=== PATIENT | male | born 1930 | race Hispanic/Latino ===

== ENCOUNTER 2019-01-13 12:27 | Outpatient (CLI) | payer MEDICARE ==
--- NOTE | 2019-01-13 13:43 | XRay Report ---
ROUTINE CHEST, TWO VIEWS: HISTORY: pneumonia unspecified organism. Compared to 11/21/15. The trachea, heart, mediastinal contour, lung sanford and bony thorax are unremarkable. Mild emphysematous changes are suspected. IMPRESSION: Unremarkable chest x-ray. No evidence for pneumonia.
== END 2019-01-13 12:28 | disposition home or self-care (01) ==
LOC: XRAY 12:27
PROVIDERS: ATTEND Internal Medicine
DX: J18.9 Pneumonia, unspecified organism (principal); Z90.49 Acquired absence of other specified parts of digestive tract
CPT/HCPCS: 71046

== ENCOUNTER 2019-02-09 08:30 | Outpatient (CLI) | payer MEDICARE ==
[2019-02-09 10:31] LABS: Hematocrit 44.6 % (35.5-45.6); Hemoglobin 15.1 gm/dl (11.8-15.2); Mean Corpuscular HGB Conc 34 % (32-34); Mean Corpuscular Volume 92 fl (84-94); Platelet Count 235 K/mm3 (140-440); Red Blood Count 4.85 M/mm3 (3.65-5.03); Red Cell Distribution Width 13.9 % (13.2-15.2)
== END 2019-02-09 08:31 | disposition home or self-care (01) ==
LOC: LAB 08:30
PROVIDERS: ATTEND Internal Medicine
DX: I11.0 Hypertensive heart disease with heart failure (principal); I50.9 Heart failure, unspecified; E78.00 Pure hypercholesterolemia, unspecified; I48.91 Unspecified atrial fibrillation; I16.9 Hypertensive crisis, unspecified; Z90.49 Acquired absence of other specified parts of digestive tract
CPT/HCPCS: 36415; 82306; 82607; 85027

== ENCOUNTER 2019-12-18 13:02 | Emergency (ER) | payer MEDICARE ==
[2019-12-18] MEDS ORDERED: HYDROcodone/ACETAMINOPHEN 5-325 MG TAB PO ONE (13:15)
--- NOTE | 2019-12-18 13:19 | Emergency Department Report ---
Chief Complaint: Fall Stated Complaint: FALL Time Seen by Provider: 12/18/19 13:19 - HPI History of Present Illness: Triage The pt is an 89 y/o M p/w pain after fall. The pt states he tripped and fell 2 days ago and landed on his back. Pt denies LOC. Pt c/o pain in his right hip, back and injury to the head - Exam Vital Signs: 119/44, P 63, R 20 SPO2 98% MSE screening note: Focused history and physical exam performed. Due to findings the following was ordered: ct head, ct c-spine, right hip xr, L spine xr ED Disposition for MSE Condition: Stable
--- NOTE | 2019-12-18 14:17 | XRay Report ---
RIGHT HIP 3 VIEW(S) INDICATION / CLINICAL INFORMATION: pain after fall COMPARISON: CT dated 06/01/15 FINDINGS: BONES / JOINT(S): No acute fracture or subluxation. 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 Patient is subjectively osteopenic. SOFT TISSUES: No significant abnormality. ADDITIONAL FINDINGS: None. Signer Name: Alcon Melvin MD Signed: 12/18/2019 2:13 PM Workstation Name: [id number]
--- NOTE | 2019-12-18 14:27 | Cat Scan Report ---
CT head/brain wo con INDICATION: Head injury after fall. TECHNIQUE: Routine CT head without contrast. All CT scans at this location are performed using CT dose reduction for ALARA by means of automated exposure control. COMPARISON: None. FINDINGS: BRAIN / INTRACRANIAL CONTENTS: No acute hemorrhage, brain edema, mass effect, or hydrocephalus. Noreen l nassar-white differentiation. No chronic infarct. Age-commensurate ventricular and cisternal/sulcal p rominence. CALVARIUM/SKULL BASE/CRANIOCERVICAL JUNCTION: No evidence of fracture. ORBITS: No significant abnormality of visualized orbits. SINUSES / MASTOIDS: No significant abnormality of visualized sinuses and mastoid air cells. ADDITIONAL FINDINGS: None. IMPRESSION: 1. No acute post-traumatic intracranial abnormality. Signer Name: Pardeep Coker MD Signed: 12/18/2019 2:22 PM Workstation Name: [id number]
--- NOTE | 2019-12-18 14:28 | XRay Report ---
LUMBAR SPINE 3 VIEWS INDICATION / CLINICAL INFORMATION: pain after fall. COMPARISON: CT dated 06/01/15. FINDINGS: VERTEBRAE: No acute fracture. Chronic appearing compression deformity at T12 with about 25% height lo ss, new since 2014. DISC SPACES / FACET JOINTS:Mild multilevel discogenic and facet spondylosis. PARASPINAL SOFT TISSUES:No significant abnormality. ADDITIONAL FINDINGS: None. IMPRESSION: 1. Age-indeterminate compression deformity at T12 potentially chronic but new since 2014. Signer Name: Alcon Melvin MD Signed: 12/18/2019 2:23 PM Workstation Name: [id number]
[2019-12-18] MEDS ORDERED: ACETAMINOPHEN 325 MG TAB PO ONE (14:29)
--- NOTE | 2019-12-18 14:30 | Emergency Department Report ---
ED General Adult HPI - General Chief complaint: Fall Stated complaint: FALL Time Seen by Provider: 12/18/19 13:19 Source: patient, family, RN notes reviewed, old records reviewed Mode of arrival: Wheelchair Limitations: Physical Limitation - History of Present Illness Initial comments: Primary care doctor: Jaycee Miller Cardiology: Ronit Snyder Patient is a pleasant 89-year-old gentleman. He has a history of cardiomyopathy and is on systemic anticoagulation, Eliquis, high cholesterol The patient presents to the ER with a complaint of fall sustained on Thursday. Today is Thursday. Fall was at [employer] and was mechanical. Patient was stepping up a stair, misstepped, and then fell, landing on his lower back, and right hip. He does not believe he hit his head or his neck. He denies extremity weakness and or numbness. He makes no complaints of bladder or bowel retention and incontinence. His main complaint is right-sided hip pain, bilateral paralumbar pain, and pain and difficulty with walking and ambulation. He is able to get up at home, but is much more difficult for him to get up and ambulate than usual. He reports that he is able to get himself out of bed with some assistance, and walk to the bathroom. He took a Tylenol at home for pain, but has not taken anything stronger. He came to the ER today to get checked out at the behest of his significant other. Pain is throbbing and aching, increases with palpation and decreases with rest. He also endorses abrasion to the dorsal aspect of his phallus. He believes his primary care doctor has him up-to-date on tetanus vaccination. He also endorses some discomfort with breathing. However, he does not have chest pain or shortness of breath, he believes that he "bruised a rib" When he fell. -: Sudden Location: back, right, lower extremity Quality: aching Consistency: intermittent Improves with: rest Worsens with: movement - Related Data Home Medications Medication Instructions Recorded Confirmed Last Taken Digoxin [Lanoxin] 0.125 mg PO DAILY 01/14/14 12/18/19 12/18/19 FLUoxetine [PROzac] 20 mg PO DAILY 01/14/14 12/18/19 12/18/19 Apixaban [Eliquis] 5 mg PO 12/18/19 12/18/19 AtorvaSTATin [Lipitor] 20 mg PO QHS 12/18/19 12/18/19 12/17/19 Metoprolol [Lopressor] 25 mg PO BID 12/18/19 12/18/19 12/18/19 diazePAM TAB [Valium] 5 mg PO PRN PRN 12/18/19 12/18/19 Unknown Allergies Allergy/AdvReac Type Severity Reaction Status Date / Time No Known Allergies Allergy Verified 11/21/15 07:54 ED Review of Systems ROS: Stated complaint: FALL Other details as noted in HPI Constitutional: denies: fever Eyes: denies: eye discharge ENT: denies: congestion Respiratory: denies: cough, wheezing Cardiovascular: denies: chest pain, syncope Gastrointestinal: denies: abdominal pain Genitourinary: other (See history of present illness). denies: dysuria Musculoskeletal: back pain, arthralgia, myalgia Skin: other (Abrasion to dorsal aspect of phallus) Neurological: weakness, other (Global weakness, but no focal extremity weak). denies: numbness, paresthesias Hematological/Lymphatic: denies: easy bleeding ED Past Medical Hx - Past Medical History Previous Medical History?: Yes Hx Congestive Heart Failure: Yes Additional medical history: enlarged heart; high cholesterol - Surgical History Past Surgical History?: Yes Hx Cholecystectomy: Yes Additional Surgical History: back; hernia repair - Social History Smoking Status: Current Every Day Smoker Substance Use Type: Alcohol - Medications Home Medications: Home Medications Medication Instructions Recorded Confirmed Last Taken Type Digoxin [Lanoxin] 0.125 mg PO DAILY 01/14/14 12/18/19 12/18/19 History FLUoxetine [PROzac] 20 mg PO DAILY 01/14/14 12/18/19 12/18/19 History Apixaban [Eliquis] 5 mg PO 12/18/19 12/18/19 History AtorvaSTATin [Lipitor] 20 mg PO QHS 12/18/19 12/18/19 12/17/19 History Metoprolol [Lopressor] 25 mg PO BID 12/18/19 12/18/19 12/18/19 History diazePAM TAB [Valium] 5 mg PO PRN PRN 12/18/19 12/18/19 Unknown History ED Physical Exam - General Limitations: Physical Limitation, Other (Patient is able to get up and walk with a 1 person assist) General appearance: alert, in no apparent distress - Head Head exam: Present: atraumatic, normocephalic - Eye Eye exam: Present: normal appearance, EOMI, other (Visual acuity intact to finger counting and color perception at a close distance). Absent: nystagmus - ENT ENT exam: Present: normal exam, normal orophraynx, mucous membranes moist, normal external ear exam - Neck Neck exam: Present: normal inspection, full ROM. Absent: tenderness, meningismus - Respiratory Respiratory exam: Present: normal lung sounds bilaterally. Absent: respiratory distress - Cardiovascular Cardiovascular Exam: Present: regular rate, irregular rhythm, normal heart sounds. Absent: tachycardia, systolic murmur, diastolic murmur, rubs, gallop - GI/Abdominal GI/Abdominal exam: Present: soft, normal bowel sounds. Absent: distended, tenderness, guarding, rebound, rigid, pulsatile mass - Rectal Rectal exam: Present: deferred - Extremities Exam Extremities exam: Present: normal inspection (2+ pulses noted in the bilateral upper and lower extremities. There is no palpable cord. negative Homans sign. Muscular compartments are soft. The pelvis is stable.), full ROM, pedal edema, other (There is right sided hip tenderness. There is right-sided hip pain with passive range of motion internal and external rotation.). Absent: calf tenderness - Back Exam Back exam: Present: normal inspection, paraspinal tenderness. Absent: tenderness, CVA tenderness (R), CVA tenderness (L) - Neurological Exam Neurological exam: Present: alert, oriented X3, normal gait (Walks with a 1 person assist), other (There is no facial droop. The tongue is midline. Extraocular movements are intact bilaterally. There is 5 out of 5 strength in bilateral upper and lower extremities. Sensation is intact to light touch bilateral upper and lower extremities. There is a normal gait.) - Psychiatric Psychiatric exam: Present: normal affect, normal mood - Skin Skin exam: Present: warm, dry, intact, normal color. Absent: rash ED Course Vital Signs 12/18/19 12/18/19 13:10 14:30 Temperature 98.6 F Pulse Rate 63 72 Respiratory 20 16 Rate Blood Pressure 119/44 148/89 [Left] O2 Sat by Pulse 98 99 Oximetry - Reevaluation(s) Reevaluation #1: 12/18/19 15:03 Differential diagnosis, including but not limited to: Intracranial injury, cervical spine injury, lumbar spine injury, retroperitoneal hematoma, musculoskeletal pain, deconditioning, fracture, myositis Assessment and plan: Elderly 89-year-old gentleman, with multiple medical comorbidities, status post mechanical fall 2 days ago, likely experiencing natural expected history of mechanical fall. He is afebrile with reassuring vital signs with an unremarkable neurologic examination. Given the extremes of age, medical comorbidities, presence of systemic anticoagulation, CT scan of the brain, cervical spine ordered prior to my personal evaluation, and are negative for traumatic disease. CT scan abdomen pelvis is ordered to assess for retroperitoneal hematoma, better assessed lumbar spine anatomy, and assess pelvic bony anatomy. He is treated with acetaminophen. Screening laboratory studies ordered to evaluate for possible myositis. However, he does appear well overall, not ill, and is able to walk with a 1 person assist, with no focal motor or neurologic deficits. He is most likely experiencing the natural expected history of mechanical fall and advanced age. If objective imaging and laboratory studies are unremarkable, we will order case management/physical therapy evaluation, to be performed tomorrow. Reevaluation #2: 12/18/19 15:58 Objective imaging studies essentially negative for significant disease, right- sided gluteal hematoma is appreciated. Patient feels improved after initial interventions. Went back to patient, and discussed the significance of laboratory studies and imaging studies with patient and his . He is going to follow-up with his outpatient primary care doctor. He has a cane at home. His has endorsed that they have a local grandson who can help out with the patient at home, as well as numerous members of the [employer]. Reevaluation #3: 12/18/19 16:00 Patient is approximately 48 hours out from initial injury, therefore, delayed intracranial hemorrhage is unlikely. ED Medical Decision Making - Lab Data Result diagrams: 12/18/19 15:12 12/18/19 15:12 Vital Signs 12/18/19 12/18/19 13:10 14:30 Temperature 98.6 F Pulse Rate 63 72 Respiratory 20 16 Rate Blood Pressure 119/44 148/89 [Left] O2 Sat by Pulse 98 99 Oximetry - Radiology Data Radiology results: report reviewed, image reviewed Noncontrast CT scan of the brain and cervical spine negative for acute disease. X-ray of the chest: no acute disease X-ray of the lumbar spine, no fracture or dislocation, T-spine compression deformity of indeterminate age Noncontrast CT scan of the abdomen pelvis Print Report Referring Physician: ALLAN KEARNS Patient Name: KO SALGUERO Date of : 1930 Sex: Male Report Date: 2019-12-18 Report Status: Finalized Findings [facility] [address] [place] [address] Cat Scan Report Signed Patient: KO SALGUERO MR#: [id number] : 1930 Acct:[id number] Age/Sex: 89 / M ADM Date: 12/18/19 Loc: ED Attending Dr: Ordering Physician: ALLAN KEARNS MD Date of Service: 12/18/19 Procedure(s): CT abdomen pelvis wo con Accession Number(s): [id number] cc: ALLAN KEARNS MD CT ABDOMEN AND PELVIS WITHOUT CONTRAST INDICATION / CLINICAL INFORMATION: fall back pain, on eliquis, assess for retroperitoneal hemorrhage pelvic. TECHNIQUE: Axial CT images were obtained through the abdomen and pelvis without IV contrast. All CT scans at this location are performed using CT dose reduction for ALARA by means of automated exposure control. COMPARISON: CT dated 06/01/15 FINDINGS: LOWER CHEST: No significant abnormality. LIVER: No significant abnormality. GALLBLADDER: Absent. BILE DUCTS: No significant abnormality. PANCREAS: No significant abnormality. SPLEEN: No significant abnormality. ADRENALS: No significant abnormality. RIGHT KIDNEY and URETER: Horseshoe kidney. No hydronephrosis. LEFT KIDNEY and URETER: Horseshoe kidney. Left renal cyst. No hydronephrosis. STOMACH and SMALL BOWEL: Stomach shows no acute abnormality. 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 No obstruction. Small bowel shows no acute abnormality. COLON: Mild colonic diverticulosis without inflammation. APPENDIX: No significant abnormality. PERITONEUM: No free fluid. No free air. No intra-abdominal or retroperitoneal hematoma. LYMPH NODES: No significant adenopathy. AORTA and ARTERIES: Mild atherosclerotic calcification without acute abnormality. IVC and VEINS: No significant abnormality. URINARY BLADDER: No significant abnormality. REPRODUCTIVE ORGANS: No significant abnormality. ADDITIONAL FINDINGS: Soft tissue hematoma in the right buttock posterior to the right hip in the gluteus allan muscle measuring 5.3 x 5.5 x 5.5 cm. SKELETAL SYSTEM: Mild anterior wedging of T12 appears chronic. IMPRESSION: 1. Right buttock soft tissue hematoma in the gluteus allan muscle. 2. No intra-abdominal or retroperitoneal hematoma. Signer Name: Alcon Melvin MD Signed: 12/18/2019 3:26 PM Workstation Name: [email or web address] Transcribed By: DT Dictated By: Tariq Melvin MD Electronically Authenticated By: Tariq Melvin MD Signed Date/Time: 12/18/19 152 DD/ 1521 Critical care attestation.: If time is entered above; I have spent that time in minutes in the direct care of this critically ill patient, excluding procedure time. ED Disposition Clinical Impression: Back pain due to injury, Anticoagulant long-term use Fall Qualifiers: Encounter type: initial encounter Qualified Code(s): W19.XXXA - Unspecified fall, initial encounter Disposition: - TO HOME OR SELFCARE Is pt being admited?: No Does the pt Need Aspirin: No Condition: Stable Additional Instructions: Please make certain to use cane or walker at home. Rest, avoid heavy lifting, and avoid strenuous physical activities. Patient may take [id number] Tylenol as needed for pain. Avoid consumption of Motrin, ibuprofen, Naprosyn, Aleve. Patient may alternate heat packs and ice packs as needed for pain. Patient may use complementary therapy, such as massage, acupuncture, and/or hot tub therapy. Pain typically gets worse before gets better after mechanical fall. For pain, patient may take [id number] Tylenol, 650 mg by mouth, every 4-6 hours, as needed for pain. Return to emergency room right away with new, worsened or different symptoms, or symptoms not present on the initial emergency room evaluation. Please make certain to follow-up with your primary care doctor to inquire about Patient's eligibility for home physical therapy, and/or home health aide. Referrals: AVELINA MILLER MD [Staff Physician] - 12/18/19 3:59 pm
--- NOTE | 2019-12-18 14:46 | Cat Scan Report ---
CT CERVICAL SPINE WITHOUT CONTRAST INDICATION: head injury after fall. TECHNIQUE: Axial CT images of the spine were obtained. Sagittal and coronal reformatted images were produced. Al l CT scans at this location are performed using CT dose reduction for ALARA by means of automated exp osure control. COMPARISON: None available. FINDINGS: ACUTE FRACTURE(S) OR SUBLUXATION: None. SPINAL DEGENERATIVE CHANGES: There is mild DJD in the atlantodental articulation and mild degenerativ e disc disease from C2 through C7. There is also mild bilateral facet DJD throughout the cervical spi ne. PARASPINAL SOFT TISSUES: No soft tissue swelling or other acute abnormalities. ADDITIONAL FINDINGS: There is atherosclerotic calcification in the bilateral carotid bulbs. IMPRESSION: 1. No acute fracture or subluxation in the spine in neutral position. Signer Name: Pardeep Coker MD Signed: 12/18/2019 2:42 PM Workstation Name: [id number]
--- NOTE | 2019-12-18 15:07 | XRay Report ---
CHEST 1 VIEW 12/18/2019 2:52 PM INDICATION / CLINICAL INFORMATION: fall, pain w inspiration. COMPARISON: 01/13/19 FINDINGS: SUPPORT DEVICES: None. HEART / MEDIASTINUM: No significant abnormality. LUNGS / PLEURA: No significant pulmonary or pleural abnormality. No pneumothorax. ADDITIONAL FINDINGS: No significant additional findings. IMPRESSION: 1. No acute findings. No change. Signer Name: Alcon Melvin MD Signed: 12/18/2019 3:02 PM Workstation Name: [id number]
[2019-12-18 15:23] LABS: Hematocrit 37.7 % (35.5-45.6); Hemoglobin 12.8 gm/dl (11.8-15.2); Mean Corpuscular HGB Conc 34 % (32-34); Mean Corpuscular Volume 92 fl (84-94); Platelet Count 250 K/mm3 (140-440); Red Blood Count 4.11 M/mm3 (3.65-5.03); Red Cell Distribution Width 13.7 % (13.2-15.2)
--- NOTE | 2019-12-18 15:30 | Cat Scan Report ---
CT ABDOMEN AND PELVIS WITHOUT CONTRAST INDICATION / CLINICAL INFORMATION: fall back pain, on eliquis, assess for retroperitoneal hemorrhage pelvic. TECHNIQUE: Axial CT images were obtained through the abdomen and pelvis without IV contrast. All CT scans at [facility] location are performed using CT dose reduction for ALARA by means of automated exposure control. COMPARISON: CT dated 06/01/15 FINDINGS: LOWER CHEST: No significant abnormality. LIVER: No significant abnormality. GALLBLADDER: Absent. BILE DUCTS: No significant abnormality. PANCREAS: No significant abnormality. SPLEEN: No significant abnormality. ADRENALS: No significant abnormality. RIGHT KIDNEY and URETER: Horseshoe kidney. No hydronephrosis. LEFT KIDNEY and URETER: Horseshoe kidney. Left renal cyst. No hydronephrosis. STOMACH and SMALL BOWEL: Stomach shows no acute abnormality. 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 No obstruc tion. Small bowel shows no acute abnormality. COLON: Mild colonic diverticulosis without inflammation. APPENDIX: No significant abnormality. PERITONEUM: No free fluid. No free air. No intra-abdominal or retroperitoneal hematoma. LYMPH NODES: No significant adenopathy. AORTA and ARTERIES: Mild atherosclerotic calcification without acute abnormality. IVC and VEINS: No significant abnormality. URINARY BLADDER: No significant abnormality. REPRODUCTIVE ORGANS: No significant abnormality. ADDITIONAL FINDINGS: Soft tissue hematoma in the right buttock posterior to the right hip in the glut eus allan muscle measuring 5.3 x 5.5 x 5.5 cm. SKELETAL SYSTEM: Mild anterior wedging of T12 appears chronic. IMPRESSION: 1. Right buttock soft tissue hematoma in the gluteus allan muscle. 2. No intra-abdominal or retroperitoneal hematoma. Signer Name: Alcon Melvin MD Signed: 12/18/2019 3:26 PM Workstation Name: [email or web address]
[2019-12-18 15:31] LABS: INR 1.65 (0.87-1.13)
[2019-12-18 15:45] LABS: BUN/Creatinine Ratio 10; Blood Urea Nitrogen 11 mg/dL (9-20); Calcium 8.7 mg/dL (8.4-10.2); Hemolysis Index 13
[2019-12-18 16:29] VITALS: BP 123/59
== END 2019-12-18 16:27 | disposition home or self-care (01) ==
LOC: ED 13:02
DX: S39.82XA Other specified injuries of lower back, initial encounter (principal); I50.9 Heart failure, unspecified; F17.200 Nicotine dependence, unspecified, uncomplicated; E78.00 Pure hypercholesterolemia, unspecified; Z90.49 Acquired absence of other specified parts of digestive tract; Z79.899 Other long term (current) drug therapy; Z98.890 Other specified postprocedural states; Z79.01 Long term (current) use of anticoagulants; W10.9XXA Fall (on) (from) unspecified stairs and steps, initial encounter; Y93.89 Activity, other specified; Y92.22 Religious institution as the place of occurrence of the external cause; Y99.8 Other external cause status
CPT/HCPCS: 36415; 70450; 71045; 72100; 72125; 74176; 80048; 82550; 83735; 85027; 85610; 85730

== ENCOUNTER 2020-03-29 21:49 | Emergency (ER) | payer MEDICARE ==
--- NOTE | 2020-03-29 22:48 | XRay Report ---
CHEST 2 VIEWS, 03/29/2020 10:36 PM INDICATION: Shortness of breath COMPARISON: Chest radiograph, 12/18/2019 FINDINGS: Support devices: None. Heart: The cardiac silhouette is mildly enlarged. Lungs/pleura: The lungs are clear of focal airspace disease or significant pleural effusion. Additional findings: There are moderate bony degenerative changes and kyphosis of the thoracic spine. IMPRESSION: 1. Mild enlargement of the cardiac silhouette. Signer Name: Joanne Joseph MD Signed: 03/29/2020 10:44 PM Workstation Name: [id number]
--- NOTE | 2020-03-29 23:34 | Emergency Department Report ---
ED General Adult HPI - General Chief complaint: Dyspnea/Respdistress Stated complaint: TROUBLE BREATHING CAN'T BE STILL PUI?: No Time Seen by Provider: 03/29/20 23:17 Source: patient, RN notes reviewed, old records reviewed Mode of arrival: Ambulatory Limitations: No Limitations - History of Present Illness Initial comments: The patient is a pleasant 89-year-old gentleman. I have evaluated this patient in the past. Past medical history includes A. fib, on Eliquis, high cholesterol, cardiomyopathy. He is on intermittent fluoxetine. He reports that his insurance company would no longer cover his fluoxetine, and he had to come off of this medication. He states that since coming off of this medication, he has had intermittent trouble breathing. This has happened to him in the past. He denies physical pain. He has no new cough, no fever, no loss of taste, smell, and no physical pain. He denies DVT and pulmonary embolism risk factors. He states that he sometimes feels "anxious" about his symptoms. His symptoms have been going on for around 7 days. He has no hematemesis or bright red blood per rectum, and he denies irritative and obstructive urinary symptoms. He and his family have been staying at home, self isolating, and self quarantining. He denies exposure to coronavirus. Primary care doctor: Dr Jaycee Miller Cardiology: Dr Ronit Snyder -: days(s) (7) Consistency: intermittent Improves with: rest Worsens with: movement - Related Data Home Medications Medication Instructions Recorded Confirmed Last Taken Digoxin [Lanoxin] 0.125 mg PO DAILY 01/14/14 12/18/19 12/18/19 FLUoxetine [PROzac] 20 mg PO DAILY 01/14/14 12/18/19 12/18/19 Apixaban [Eliquis] 5 mg PO 12/18/19 12/18/19 AtorvaSTATin [Lipitor] 20 mg PO QHS 12/18/19 12/18/19 12/17/19 Metoprolol [Lopressor] 25 mg PO BID 12/18/19 12/18/19 12/18/19 diazePAM TAB [Valium] 5 mg PO PRN PRN 12/18/19 12/18/19 Unknown Allergies Allergy/AdvReac Type Severity Reaction Status Date / Time No Known Allergies Allergy Verified 01/20/16 07:54 ED Review of Systems ROS: Stated complaint: TROUBLE BREATHING CAN'T BE STILL Other details as noted in HPI Constitutional: denies: fever Eyes: denies: eye discharge ENT: denies: congestion Respiratory: shortness of breath Cardiovascular: edema (Chronic). denies: chest pain Gastrointestinal: denies: abdominal pain Genitourinary: denies: dysuria Musculoskeletal: as per HPI Skin: as per HPI Neurological: as per HPI Psychiatric: as per HPI Hematological/Lymphatic: denies: easy bleeding ED Past Medical Hx - Past Medical History Previous Medical History?: Yes Hx Congestive Heart Failure: Yes Additional medical history: enlarged heart; high cholesterol - Surgical History Past Surgical History?: Yes Hx Cholecystectomy: Yes Additional Surgical History: back; hernia repair - Social History Smoking Status: Current Every Day Smoker Substance Use Type: Alcohol - Medications Home Medications: Home Medications Medication Instructions Recorded Confirmed Last Taken Type Digoxin [Lanoxin] 0.125 mg PO DAILY 01/14/14 12/18/19 12/18/19 History FLUoxetine [PROzac] 20 mg PO DAILY 01/14/14 12/18/19 12/18/19 History Apixaban [Eliquis] 5 mg PO 12/18/19 12/18/19 History AtorvaSTATin [Lipitor] 20 mg PO QHS 12/18/19 12/18/19 12/17/19 History Metoprolol [Lopressor] 25 mg PO BID 12/18/19 12/18/19 12/18/19 History diazePAM TAB [Valium] 5 mg PO PRN PRN 12/18/19 12/18/19 Unknown History ED Physical Exam - General Limitations: No Limitations General appearance: alert, in no apparent distress - Head Head exam: Present: atraumatic, normocephalic - Eye Eye exam: Present: normal appearance, EOMI. Absent: nystagmus - ENT ENT exam: Present: normal exam, normal orophraynx, mucous membranes moist, normal external ear exam - Neck Neck exam: Present: normal inspection, full ROM. Absent: tenderness, meningismus - Respiratory Respiratory exam: Present: normal lung sounds bilaterally. Absent: respiratory distress - Cardiovascular Cardiovascular Exam: Present: normal rhythm, irregular rhythm, normal heart sounds. Absent: systolic murmur, diastolic murmur, rubs, gallop - GI/Abdominal GI/Abdominal exam: Present: soft, normal bowel sounds. Absent: distended, tenderness, guarding, rebound, rigid, pulsatile mass - Rectal Rectal exam: Present: deferred - Extremities Exam Extremities exam: Present: normal inspection, full ROM, pedal edema, other (2+ pulses noted in the bilateral upper and lower extremities. There is no palpable cord. negative Homans sign. Muscular compartments are soft. The pelvis is stable.). Absent: calf tenderness - Back Exam Back exam: Present: normal inspection, full ROM. Absent: tenderness, CVA tenderness (R), CVA tenderness (L), paraspinal tenderness, vertebral tenderness - Neurological Exam Neurological exam: Present: alert, normal gait, other (No facial droop. Tongue midline. Extraocular movements intact bilaterally. Facial sensation intact to light touch in V1, V2, V3 distribution bilaterally. 5 and a 5 strength in 4 extremities. Sensation intact to light touch in 4 extremities.). Absent: motor sensory deficit - Psychiatric Psychiatric exam: Present: normal affect, normal mood - Skin Skin exam: Present: warm, dry, intact, normal color. Absent: rash ED Course Vital Signs 03/29/20 03/29/20 22:00 23:50 Temperature 98.6 F Pulse Rate 65 Respiratory 20 20 Rate Blood Pressure 158/82 O2 Sat by Pulse 98 97 Oximetry ED Medical Decision Making - Lab Data Result diagrams: 03/29/20 23:47 03/29/20 23:47 Vital Signs 03/29/20 03/29/20 22:00 23:50 Temperature 98.6 F Pulse Rate 65 Respiratory 20 20 Rate Blood Pressure 158/82 O2 Sat by Pulse 98 97 Oximetry Lab Results 03/29/20 03/29/20 03/29/20 Range/Units 23:47 23:47 23:47 WBC 6.9 (4.5-11.0) K/mm3 RBC 4.86 (3.65-5.03) M/mm3 Hgb 14.7 (11.8-15.2) gm/dl Hct 44.5 (35.5-45.6) % MCV 91 (84-94) fl MCH 30 (28-32) pg MCHC 33 (32-34) % RDW 13.8 (13.2-15.2) % Plt Count 237 (140-440) K/mm3 PT 18.5 H (12.2-14.9) Sec. INR 1.54 H (0.87-1.13) Sodium 139 (137-145) mmol/L Potassium 4.6 (3.6-5.0) mmol/L Chloride 99.1 (98-107) mmol/L Carbon Dioxide 29 (22-30) mmol/L Anion Gap 16 mmol/L BUN 16 (9-20) mg/dL Creatinine 0.8 (0.8-1.5) mg/dL Estimated GFR > 60 ml/min BUN/Creatinine Ratio 20 % Glucose 98 (75-100) mg/dL Calcium 9.8 (8.4-10.2) mg/dL Magnesium 2.10 (1.7-2.3) mg/dL Total Creatine Kinase 78 (55-170) units/L - EKG Data -: EKG Interpreted by Ne - EKG Data 03/30/20 00:52 This is A. fib, 57 bpm, left axis deviation, left anterior fascicular block, normal intervals, motion artifact, the EKG is not a STEMI - Radiology Data Radiology results: pending, report reviewed, image reviewed X-ray of the chest is negative for acute disease - Medical Decision Making Differential diagnosis, including but not limited to: Pneumonia, congestive heart failure, medication side effect, bronchitis, deconditioning Assessment and plan: 89-year-old gentleman, who is afebrile, with reassuring vital signs, without crackles or rales, saturating at 97% on room air, who denies DVT and pulmonary embolism risk factors, who is low risk by Anam fuentes, who is not currently tachycardic, tachypneic or hypoxic, who is compliant with systemic anticoagulation, with nonspecific respiratory complaint, present x7 days. He is able to walk with a steady gait without significant desaturation. His EKG is reviewed and appreciated. His x-ray of the chest is reviewed and appreciated. He does not appear to have an emergent medical condition at this time. He is suitable to follow-up with his outpatient primary care doctor or sleep scientist for his subacute sensation of shortness of breath. Does not appear to be consistent with silent hypoxic associated with COVID. He does have mild chronic lower extremity edema, which appears to be dependent, without crackles, rales, or obvious respiratory distress. He can follow-up with his outpatient primary care doctor or sleep scientist for this. Does not require emergency diuresis at this time In addition, the patient was able to ambulate around the emergency room, without significant desaturation. He did have mild subjective shortness of breath. Critical care attestation.: If time is entered above; I have spent that time in minutes in the direct care of this critically ill patient, excluding procedure time. ED Disposition Clinical Impression: History of dyspnea Disposition: DC-01 TO HOME OR SELFCARE Is pt being admited?: No Does the pt Need Aspirin: No Condition: Stable Additional Instructions: Please continue current outpatient medications. Please follow-up with your primary care doctor or sleep scientist within the next 3 to 5 days. Make certain to wash hands with soap and water often and frequently. Wash all clothing in hot water and soap/detergent as soon as possible. Please return to the emergency room right away with new, worsened or different symptoms, new pain, worsening pain, migration of pain, projectile vomiting, change in mental status, confusion, inability to tolerate liquid feeds, worsening shortness of breath Referrals: AVELINA MILLER MD [Staff Physician] - 3-5 Days DONAVAN SNYDER MD [Staff Physician] - 3-5 Days
[2020-03-30 00:18] LABS: Hematocrit 44.5 % (35.5-45.6); Hemoglobin 14.7 gm/dl (11.8-15.2); Mean Corpuscular HGB Conc 33 % (32-34); Mean Corpuscular Volume 91 fl (84-94); Platelet Count 237 K/mm3 (140-440); Red Blood Count 4.86 M/mm3 (3.65-5.03); Red Cell Distribution Width 13.8 % (13.2-15.2)
[2020-03-30 00:31] LABS: INR 1.54 (0.87-1.13)
[2020-03-30 00:34] LABS: BUN/Creatinine Ratio 20; Blood Urea Nitrogen 16 mg/dL (9-20); Calcium 9.8 mg/dL (8.4-10.2); Hemolysis Index 7
[2020-03-30 01:20] VITALS: BP 152/83
== END 2020-03-30 01:20 | disposition home or self-care (01) ==
LOC: ED 21:49
DX: R06.00 Dyspnea, unspecified (principal); I50.9 Heart failure, unspecified; F17.200 Nicotine dependence, unspecified, uncomplicated; Z90.49 Acquired absence of other specified parts of digestive tract; Z98.890 Other specified postprocedural states; Z79.899 Other long term (current) drug therapy
CPT/HCPCS: 36415; 71046; 80048; 82550; 83735; 85027; 85610; 93005

== ENCOUNTER 2020-05-23 10:01 | Outpatient (CLI) | payer MEDICARE ==
[2020-05-23 10:54] LABS: Chol/HDL Ratio 2.64 %
== END 2020-05-23 10:02 | disposition home or self-care (01) ==
LOC: LAB 10:01
PROVIDERS: ATTEND Internal Medicine
DX: R73.03 Prediabetes (principal); E78.00 Pure hypercholesterolemia, unspecified; E66.09 Other obesity due to excess calories
CPT/HCPCS: 36415; 80061; 83036

== ENCOUNTER 2020-10-08 09:10 | Outpatient (CLI) | payer MEDICARE ==
[2020-10-08 10:33] LABS: Basophils # (Auto) 0.1 K/mm3 (0.0-0.1); Basophils % (Auto) 1.2 % (0.0-1.8); Eosinophils # (Auto) 0.3 K/mm3 (0.0-0.4); Eosinophils % (Auto) 4.5 % (0.0-4.3); Hematocrit 43.1 % (35.5-45.6); Hemoglobin 14.6 gm/dl (11.8-15.2); Lymphocytes % (Auto) 14.3 % (13.4-35.0); Mean Corpuscular HGB Conc 34 % (32-34); Mean Corpuscular Volume 95 fl (84-94); Monocytes # (Auto) 0.6 K/mm3 (0.0-0.8); Monocytes % (Auto) 8.1 % (0.0-7.3); Platelet Count 220 K/mm3 (140-440); Red Blood Count 4.54 M/mm3 (3.65-5.03); Red Cell Distribution Width 13.9 % (13.2-15.2)
[2020-10-08 10:55] LABS: Alanine Aminotransferase 23 units/L (7-56); Albumin 3.6 g/dL (3.9-5); Blood Urea Nitrogen 14 mg/dL (9-20); Calcium 9.3 mg/dL (8.4-10.2); Chol/HDL Ratio 2.66 %; HDL Cholesterol 42 mg/dL (40-59); Hemolysis Index 3; LDL Cholesterol,Direct 66 mg/dL (50-130)
[2020-10-08 11:08] LABS: BUN/Creatinine Ratio 20
== END 2020-10-08 09:11 | disposition home or self-care (01) ==
LOC: LAB 09:10
PROVIDERS: ATTEND Internal Medicine
DX: Z13.29 Encounter for screening for other suspected endocrine disorder (principal); E78.5 Hyperlipidemia, unspecified; E55.9 Vitamin D deficiency, unspecified; R73.03 Prediabetes
CPT/HCPCS: 36415; 80053; 80061; 82306; 83036; 84443; 85025

== ENCOUNTER 2021-02-27 09:15 | Outpatient (CLI) | payer MEDICARE ==
[2021-02-27 10:20] LABS: Chol/HDL Ratio 2.76 %
== END 2021-02-27 09:16 | disposition home or self-care (01) ==
LOC: LAB 09:15
PROVIDERS: ATTEND Internal Medicine
DX: E78.5 Hyperlipidemia, unspecified (principal); R73.03 Prediabetes
CPT/HCPCS: 36415; 80061; 83036

== ENCOUNTER 2021-10-23 11:04 | Outpatient (CLI) | payer MEDICARE ==
[2021-10-23 12:23] LABS: Alanine Aminotransferase 25 units/L (7-56); Albumin 3.7 g/dL (3.9-5); Blood Urea Nitrogen 13 mg/dL (9-20); Calcium 9.1 mg/dL (8.4-10.2); Chol/HDL Ratio 2.52 %; HDL Cholesterol 42 mg/dL (40-59); Hemolysis Index 9; LDL Cholesterol,Direct 59 mg/dL (50-130)
[2021-10-23 12:24] LABS: BUN/Creatinine Ratio 19
== END 2021-10-23 11:05 | disposition home or self-care (01) ==
LOC: LAB 11:04
PROVIDERS: ATTEND Internal Medicine
DX: E78.5 Hyperlipidemia, unspecified (principal); R73.03 Prediabetes; R53.83 Other fatigue; Z00.00 Encounter for general adult medical examination without abnormal findings
CPT/HCPCS: 36415; 80053; 80061; 82306; 83036; 84443

== ENCOUNTER 2022-01-10 11:39 | Outpatient (CLI) | payer MEDICARE ==
--- NOTE | 2022-01-10 14:57 | Cat Scan Report ---
CT head/brain wo con INDICATION / CLINICAL INFORMATION: 89 years Male; HEADACHE. TECHNIQUE: Routine CT head without contrast. All CT scans at this location are performed using CT dos e reduction for ALARA by means of automated exposure control. COMPARISON: The study is compared to previous CT of 12/18/2019. FINDINGS: BRAIN / INTRACRANIAL CONTENTS: The motion degrades the image quality. However, there appears be moder ate cerebral white matter disease most consistent with microvascular angiopathy. There is also mild c erebral atrophy with associated prominence of the ventricular system. There is no clear CT evidence o f acute intracranial hemorrhage or significant mass effect. ORBITS: No significant abnormality of visualized orbits. SINUSES / MASTOIDS: No significant abnormality in the visualized paranasal sinuses or mastoid air mily ls. CRANIOCERVICAL JUNCTION: No significant abnormality. ADDITIONAL FINDINGS: None. IMPRESSION: 1. 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 Signer Name: Brad Peng MD Signed: 01/10/2022 2:52 PM Workstation Name: [id number]
== END 2022-01-10 11:40 | disposition home or self-care (01) ==
LOC: CT 11:39
PROVIDERS: ATTEND Internal Medicine
DX: I67.9 Cerebrovascular disease, unspecified (principal); R51.0 Headache with orthostatic component, not elsewhere classified
CPT/HCPCS: 70450